=== PATIENT | female | born 1960 | race Caucasian/White ===

== ENCOUNTER 2016-06-05 17:30 | Emergency (ER) | payer MEDICARE, OTHER ==
[2016-06-05 15:08] LABS: BASOPHILS 0.1 %; BASOPHILS ABSOLUTE 0.01 10/3/uL (0.0-0.16); EOSINOPHILS ABSOLUTE 0.17 10/3/uL (0.0-0.53); HEMATOCRIT 32.1 % (36.0-48.0); HEMOGLOBIN 10.4 g/dL (12.0-16.0); IMMATURE GRANULOCYTES 0.5 %; IMMATURE GRANULOCYTES ABSOLUTE 0.04 10/3/uL (0.0-0.11); LYMPHOCYTES 22.5 %; MANUAL DIFF NO %; MEAN CORPUS HGB CONC 32.4 g/dL (32.0-36.0); MEAN CORPUSCULAR HEMOGLOB 29.4 pg (26.0-34.0); MEAN CORPUSCULAR VOLUME 90.7 fL (80-100); MEAN PLATELET VOLUME 9.2 fL (9.2-13.0); MONOCYTES 4.7 %; NEUTROPHILS 70.2 %; NEUTROPHILS ABSOLUTE 5.94 10/3/uL (2.02-8.40); PLATELET COUNT 179 10/3/uL (150-400); RBC DISTRIBUTION WIDTH 14.7 % (12.0-16.0); RED CELL COUNT 3.54 10/6/uL (4.0-5.6); WHITE BLOOD CELLS 8.5 10/3/uL (4.5-10.5)
[2016-06-05 15:16] LABS: INTERNATIONAL NORMAL RATI 1.1 UNITS (-); PARTIAL THROMBO TIME 28.5 SEC (22.5-37.2); PROTIME (NOT ORD) 13.9 SEC (12.0-14.5)
[2016-06-05 15:24] LABS: BUN (BLOOD UREA NITROGEN) 17 MG/DL (6-23); CALCIUM, SERUM 8.9 MG/DL (8.5-10.4); CHEST PAIN PROFILE TAT 0 Hrs 22 Mins; CHLORIDE, SERUM 105 MMOL/L (96-112); CO2 (CARBON DIOXIDE) 27 MMOL/L (24-34); CREATININE 0.96 MG/DL (0.55-1.02); GFR AFRICAN AMERICAN 76 ML/MIN (>=60); GFR NON AFRICAN AMERICAN 66 ML/MIN (>=60); GLUCOSE, SERUM 166 MG/DL (60-99); POTASSIUM, SERUM 4.2 MMOL/L (3.5-5.3); SODIUM, SERUM 143 MMOL/L (135-148); TROPONIN I <0.02 NG/ML (<0.05)
[~2016-06-05 17:30] MED LIST: ACTOPLUS M15 MG/500 PO; ALBUTEROL INH; AMB5 PO; ASAB PO; B121000P IM; BACLOFEN20 MG PO; CLARIT10 PO; DIL4TAB PO; DSS PO; FERRETTS325 MG PO; GLUCOPHAGE1000 MG PO; GLUCPH PO; HUMALOG SC; HUMALOGPEN SC; IPRATROPIUM INH; JANUVIA100 MG PO; KLONO1 PO; KLONO5 PO; KLOR-CON 1010 MEQ PO; KLOR-CON M1010 MEQ PO; L40 PO; L80 PO; LIDODERM TOP; MOBIC15 MG PO; NEUR800 PO; NEXIUM40 PO; OXYCON20 PO; PERCOCET PO; PERCOCET1 TA4 PO; PRIN10 PO; PROAIR HFA INH; PROVHFA INH; SINGULAIR1 PO; STOOL SOFTEN240 MG PO; SYMBICORT 80/4.1 INH INH; V5 PO; VITAMIN B-121000 MC1 SL; VITAMIN D31000 UNIT PO; VITC500 PO; ZOCOR20 PO
== END 2016-06-05 19:47 | disposition home or self-care (01) ==
LOC: ER 17:30
PROVIDERS: Emergency Medicine
DX: J44.1 Chronic obstructive pulmonary disease with (acute) exacerbation (principal); M79.89 Other specified soft tissue disorders; I10 Essential (primary) hypertension; K21.9 Gastro-esophageal reflux disease without esophagitis; F32.9 Major depressive disorder, single episode, unspecified; E11.9 Type 2 diabetes mellitus without complications; D64.9 Anemia, unspecified; Z90.710 Acquired absence of both cervix and uterus; Z88.1 Allergy status to other antibiotic agents; Z79.4 Long term (current) use of insulin; Z79.899 Other long term (current) drug therapy
CPT/HCPCS: 71020; 71275; 80048; 83735; 83880; 84484; 85025; 85610; 85730; 93005; 93970; 96374; 99285; J2405; Q9967